=== PATIENT | female | born 1945 | race African-American/Black ===

== ENCOUNTER 2019-05-12 05:23 | Inpatient (IN) | payer OTHER ==
[~2019-05-12] VITALS: Ht 162.6 cm; Wt 86.2 kg
[2019-05-12 05:38] VITALS: Ht 162.6 cm; Wt 86.2 kg
--- NOTE | 2019-05-12 05:44 | NUR ---
PT BIBA TO ED WITH C/C LEFT SHOULDER PAIN. PER MEDIC PT WAS AT HOME TAKING CARE OF HER DISABLED DAUGHTER WHEN SHE FELL ONTO HER DAUGHTERS METAL RAILING ON HOSPITAL BED AND HIT HER LEFT SHOULDER. PT REPORTS GETTING CAUGHT UP IN THE RAILING WITH IMMEDIATE PAIN TO LEFT SHOULDER. PT REPORTS NUMBNESS TO LEFT HAND. +PMSC TO LUE. PT IS AAOX4. RESP E/U. PT GIVEN 100MCG FENTANYL IN EN ROUTE. PAIN IS 8/10 PER PATIENT. SON AT BEDSIDE. CONNECTED TO MONITOR. REPORT GIVEN TO ROMY MOJICA PRIMARY NURSE TO ASSUME CARE.
--- NOTE | 2019-05-12 06:03 | NUR ---
DR. MILLER AT BEDSIDE WITH MSE
--- NOTE | 2019-05-12 06:13 | NUR ---
PT. REFUSING NARCOTIC MEDICATION, REFUSING IV AT THIS TIME, DR. MILLER MADE AWARE,
--- NOTE | 2019-05-12 06:20 | NUR ---
MEDICATED PT PER MD ORDER, PT. TOLERATED WEL, SEE EMAR
--- NOTE | 2019-05-12 06:48 | NUR ---
REASSESMENT- OF PAIN, PT. STATES "I DONT HAVE PAIN" "I JUST FEEL THE NUMBNESS." 0/10, PAIN LEVEL
--- NOTE | 2019-05-12 07:09 | NUR ---
REPORT GIVEN TO OLI STANTON
--- NOTE | 2019-05-12 07:57 | NUR ---
DR. REESE CALLED IN AND ADMITED PT TO M/S.
[2019-05-12 08:25] LABS: BASOPHIL % 0.2 % (0-2); PLATELET COUNT 253 x10^3mcL (130-400)
[2019-05-12 08:26] LABS: RED CELL DISTRIBUTION WIDTH 16.5 % (11.5-14.5)
[2019-05-12] MEDS ORDERED: HYDROCHLOROTHIA25 MG PO (08:27)
[2019-05-12 08:35] LABS: CALCIUM 9.1 mg/dL (8.5-10.1); CARBON DIOXIDE 25.8 mmol/L (21-32); CHLORIDE SERUM 102 mmol/L (98-107); CREATININE SERUM 1.2 mg/dL (0.6-1.0); GLUCOSE SERUM 145 mg/dL (74-106); POTASSIUM SERUM 3.8 mmol/L (3.5-5.1); SODIUM SERUM 138 mmol/L (136-145)
--- NOTE | 2019-05-12 08:35 | NUR ---
PT WAS ADMINISTERED TO MED/SURG. [id number]. REPORT WAS CALLED AND GIVEN ULISES STANTON. PT IS READY TO BE TRANSFERED.
[2019-05-12 08:39] LABS: ALBUMIN 3.6 g/dL (3.4-5.0); ALKALINE PHOSPHATASE 84 U/L (46-116); ALT/SGPT 27 U/L (14-59); AST/SGOT 24 U/L (15-37); BILIRUBIN TOTAL 0.34 mg/dL (0.20-1.00)
[2019-05-12 08:40] LABS: TOTAL PROTEIN, SERUM 8.4 g/dL (6.4-8.2)
[2019-05-12 08:50] VITALS: BP 160/82
--- NOTE | 2019-05-12 08:50 | NUR ---
PT ARRIVED FROM E.. AA/O X4, BREATHING EVEN AND UNLABORED ON RA, NO ACUTE RESP DISTRESS OR SOB NOTED. MEDSURG/ DENIES ANY CP OR PRESSURE. PT IS FROM HOME AND STATED FELL TRYING TO AID HER DISABLE DAUGHTER, L SHOULDER IN A IMMOBILIZER. VOIDS FREELY. AMB/ KNOWS TO CALL FOR ASSIST. IV TO TO THE RAC INTACT AND PATENT/ NO REDNESS OR SWELLING NOTED. CALL LIGHT IN REACH. WILL CONTINUE TO MONITOR.
--- NOTE | 2019-05-12 11:45 | NUR ---
DR. CLAY AT BEDSIDE EXPLAINING PROCEDURE TO PT. PT C/O L ARM PAIN 12/06, MEDICATED PER EMAR. WILL CONTINUE TO MONITOR.
--- NOTE | 2019-05-12 11:46 | NUR ---
DR. REESE AT BEDSIDE GOING OVER CARE PLAN.
[2019-05-12 12:04] VITALS: BP 180/88
[2019-05-12 13:19] LABS: microscopic required? NO
[2019-05-12 14:16] LABS: urine erythrocyte NEGATIVE (NEGATIVE)
--- NOTE | 2019-05-12 14:18 | NUR ---
PT C/O L ARM PAIN 6/10 ,MEDICATED PER EMAR. WILL CONTINUE TO MONITOR.
[2019-05-12 15:11] VITALS: BP 155/80
--- NOTE | 2019-05-12 15:13 | NUR ---
PT DECIDED TO LEAVE AMA, SIGNED FORM. PT IS CLEAR NEEDS TO FOLLOW UP WITH PRIMARY DOC REGRADING L ARM FRACTURE. SONS AT BEDSIDE, WILL BE DRIVING HER HOME. PT LEAVING AMA. NORMA WILL BE WHEELING PT DOWN TO FRONT OF HOSPITAL.
--- NOTE | 2019-05-12 15:30 | NUR ---
CALLED TO DR. REESE, MADE AWARE OF PATIENT LEFT AMA.
== END 2019-05-12 16:28 | disposition left against medical advice (07) | DRG 563 ==
LOC: ED 05:23 → MU 07:55
PROVIDERS: Emergency Medicine; ADMIT Internal Medicine
DX: S42.292A Other displaced fracture of upper end of left humerus, initial encounter for closed fracture (principal); I10 Essential (primary) hypertension; Z53.29 Procedure and treatment not carried out because of patient's decision for other reasons; W06.XXXA Fall from bed, initial encounter; Y92.009 Unspecified place in unspecified non-institutional (private) residence as the place of occurrence of the external cause
CPT/HCPCS: 90658; G0378; J1885; Q0092